=== PATIENT | female | born 1955 | race Caucasian/White ===

== ENCOUNTER 2020-12-15 18:18 | Inpatient (IN) ==
[2020-12-15] MEDS ORDERED: *HR* Promethazine 25 MG/ML VIAL IM PRN (22:56)
[2020-12-15] MEDS ORDERED: Ondansetron 4 MG/2 ML VIAL IVP PRN (22:56)
[2020-12-15] MEDS ORDERED: Naloxone 0.4 MG/ML INJ IVP PRN (22:56)
[2020-12-15] MEDS: 0.9 % Sodium Chloride 1,000 ML IVC SCH (23:29)
[2020-12-16] MEDS: Ketorolac 30 MG/ML VIAL IVP PRN (01:18)
[2020-12-16 05:34] LABS: Basophils % 0.3 %; Eosinophils % 0.1 %; Hematocrit 39.4 % (35.3-44.9); Hemoglobin 13.2 g/dL (11.5-15.4); Immature Granulocytes % 0.6 % (0-4); Lymphocytes # 1.8 K/mcL (0.6-4.6); Lymphocytes % 12.5 %; Mean Corpuscular HGB Conc 33.5 g/dL (31.6-35.5); Mean Corpuscular Volume 92.5 fL (83.0-100.0); Mean Platelet Volume 10.7 fL (9.4-12.4); Monocytes # 1.6 K/mcL (0.0-1.3); Monocytes % 11.1 %; Neutrophils # 10.8 K/mcL (1.6-8.9); Platelet Count 266 K/mcL (140-400); Red Blood Count 4.26 M/mcL (3.82-4.97); Red Cell Distribution Width 12.9 % (11.5-14.5); Segmented Neutrophils % 75.4 %; White Blood Count 14.3 K/mcL (4.3-11.1)
[2020-12-16 05:43] LABS: Prothrombin Time 11.7 Seconds (9.4-12.1)
[2020-12-16 05:46] LABS: Activated Partial Thrombo Time 27.5 Seconds (26.0-36.0)
[2020-12-16 05:55] LABS: BUN/Creatinine Ratio 16 (6-26); Blood Urea Nitrogen 11 mg/dL (8-23); Calcium 9.1 mg/dL (8.6-10.3); Carbon Dioxide 22 mEq/L (23-29); Chloride 104 mEq/L (98-107); Glucose 121 mg/dL (70-105); Osmolality,Calculated 283 (280-300); Potassium 3.4 mEq/L (3.5-5.1); Sodium 136 mEq/L (136-145); eGFR For African Americans > 60 (> 60); eGFR For Non-African Americans > 60 (> 60)
[2020-12-16] MEDS ORDERED: lisinopriL 5 MG TABLET PO SCH (09:00)
[2020-12-16] MEDS ORDERED: *HR* FentaNYL (PF) 100 MCG/2 ML VIAL IVP PRN ×2 (09:05→10:39)
[2020-12-16] MEDS ORDERED: *HR* OxyCODONE Immed Rel 5 MG TABLET PO PRN (09:05)
[2020-12-16] MEDS ORDERED: Ondansetron 4 MG/2 ML VIAL IVP PRN ×2 (09:05→10:39)
[2020-12-16] MEDS ORDERED: Ketorolac 15 MG/ML VIAL IVP PRN (09:05)
[2020-12-16] MEDS ORDERED: Ringers Solution, Lactated 1,000 ML IVC SCH (09:15)
[2020-12-16] MEDS ORDERED: *HR* Propofol 200 MG/20 ML VIAL IVP ONE (09:40)
[2020-12-16] MEDS ORDERED: *HR* Rocuronium Bromide 50 MG/5 ML VIAL ONE (09:40)
[2020-12-16] MEDS ORDERED: Lidocaine -MPF 2% 2 ML VIAL ONE (09:40)
[2020-12-16] MEDS ORDERED: *HR* Midazolam HCl 2 MG/2 ML VIAL ONE (09:40)
[2020-12-16] MEDS ORDERED: Acetaminophen IV 1,000 MG/100 ML BAG IVPB ONE (10:22)
[2020-12-16] MEDS ORDERED: Naloxone 0.4 MG/ML INJ IVP PRN (10:39)
[2020-12-16] MEDS ORDERED: Albuterol 2.5 MG/3 ML NEBULIZER IH PRN (10:39)
[2020-12-16] MEDS ORDERED: Nitroglycerin 0.4 MG TAB.SUBL SL PRN (10:39)
[2020-12-16] MEDS ORDERED: *HR* HYDROmorphone (PF) 1 MG/ML SYRINGE IVP PRN (10:39)
[2020-12-16] MEDS ORDERED: *HR* Etomidate 40 MG/20 ML VIAL IVP ONE (10:52)
[2020-12-16] MEDS ORDERED: Aspirin Enteric Coated 325 MG Tablet PO SCH (11:00)
[2020-12-16] MEDS ORDERED: Nitroglycerin 0.4 MG TAB.SUBL SL ONE (11:02)
[2020-12-16] MEDS ORDERED: Aspirin 81 MG TAB.CHEW PO ONE (11:06)
[2020-12-16] MEDS ORDERED: CeFAZolin Syr 2,000MG/20 ML 2,000 MG/20 ML SYRINGE IVPB ONE (11:15)
[2020-12-16] MEDS ORDERED: *HR* Heparin 5,000 UNIT/ML VIAL IVP ONE (11:49)
[2020-12-16] MEDS ORDERED: *HR* Heparin 5,000 UNIT/ML VIAL IVP PRN ×2 (11:49)
[2020-12-16] MEDS ORDERED: Perflutren Lipid Microsphere 1.3 ML in 0.9 % Sodium Chloride 8.7 ML IVP PRN (11:49)
[2020-12-16] MEDS ORDERED: Heparin 25,000UNIT/250ML 1/2NS 25,000 UNIT/250 ML IV.SOLN IVC SCH (12:00)
[2020-12-16] MEDS ORDERED: Potassium Chloride Elixir 20 MEQ/15 ML UDC PO ONE (12:56)
[2020-12-16] MEDS: ARIPiprazole 5 MG TABLET PO SCH ×2 (14:49→20:17)
[2020-12-16] MEDS: carvediloL 6.25 MG TABLET PO SCH ×2 (14:50→20:27)
[2020-12-16] MEDS: Perphenazine 2 MG TABLET PO SCH ×2 (14:50→20:19)
[2020-12-16] MEDS: Piperacillin/Tazobactam 3.375 GM in 0.9 % Sodium Chloride Mini Bag 100 ML IVPB SCH (17:17)
[2020-12-16] MEDS: Gabapentin 300 MG CAPSULE PO SCH ×2 (17:17→20:19)
[2020-12-17] MEDS: Piperacillin/Tazobactam 3.375 GM in 0.9 % Sodium Chloride Mini Bag 100 ML IVPB SCH ×3 (00:09→16:18)
[2020-12-17 03:18] LABS: Basophils % 0.3 %; Eosinophils # 0.1 K/mcL (0.0-0.6); Eosinophils % 0.8 %; Hematocrit 38.9 % (35.3-44.9); Hemoglobin 13.3 g/dL (11.5-15.4); Immature Granulocytes % 0.4 % (0-4); Lymphocytes # 1.8 K/mcL (0.6-4.6); Mean Corpuscular HGB Conc 34.2 g/dL (31.6-35.5); Mean Corpuscular Hemoglobin 31.5 pg (28.0-33.3); Mean Corpuscular Volume 92.2 fL (83.0-100.0); Mean Platelet Volume 10.9 fL (9.4-12.4); Monocytes # 1.5 K/mcL (0.0-1.3); Monocytes % 12.3 %; Neutrophils # 8.6 K/mcL (1.6-8.9); Platelet Count 226 K/mcL (140-400); Red Blood Count 4.22 M/mcL (3.82-4.97); Red Cell Distribution Width 12.7 % (11.5-14.5); Segmented Neutrophils % 71.2 %; White Blood Count 12.1 K/mcL (4.3-11.1)
[2020-12-17] MEDS: Ketorolac 30 MG/ML VIAL IVP PRN (03:18)
[2020-12-17 03:25] LABS: INR 1.2; Prothrombin Time 13.5 Seconds (9.4-12.1)
[2020-12-17 03:37] LABS: Alanine Aminotransferase 16 Units/L (7-52); Albumin/Globulin Ratio 1.4 (1.1-2.2); Alkaline Phosphatase 65 Units/L (34-104); Aspartate Amino Transferase 18 Units/L (13-39); BUN/Creatinine Ratio 22 (6-26); Bilirubin,Total 0.9 mg/dL (0.3-1.0); Blood Urea Nitrogen 14 mg/dL (8-23); Calcium 8.9 mg/dL (8.6-10.3); Carbon Dioxide 20 mEq/L (23-29); Chloride 100 mEq/L (98-107); Globulin 2.8 g/dL (2.4-3.5); Glucose 110 mg/dL (70-105); Magnesium 1.7 mg/dL (1.6-2.6); Osmolality,Calculated 277 (280-300); Potassium 3.3 mEq/L (3.5-5.1); Sodium 133 mEq/L (136-145); Total Protein 6.8 g/dL (6.4-8.9); eGFR For African Americans > 60 (> 60); eGFR For Non-African Americans > 60 (> 60)
[2020-12-17] MEDS: ARIPiprazole 5 MG TABLET PO SCH ×3 (08:22→20:10)
[2020-12-17] MEDS: Gabapentin 300 MG CAPSULE PO SCH ×4 (08:23→20:09)
[2020-12-17] MEDS: carvediloL 6.25 MG TABLET PO SCH ×3 (08:23→19:24)
[2020-12-17] MEDS: Perphenazine 2 MG TABLET PO SCH ×3 (08:23→20:09)
[2020-12-17] MEDS ORDERED: Aspirin Enteric Coated 325 MG Tablet PO SCH (09:00)
[2020-12-17] MEDS ORDERED: lisinopriL 20 MG TABLET PO SCH (09:00)
[2020-12-17] MEDS ORDERED: Aspirin 81 MG TAB.CHEW PO SCH (09:00)
[2020-12-17] MEDS ORDERED: *HR* Propofol 200 MG/20 ML VIAL IVP ONE (10:32)
[2020-12-17] MEDS ORDERED: Ondansetron 4 MG/2 ML VIAL ONE (10:32)
[2020-12-17] MEDS ORDERED: Lidocaine -MPF 2% 2 ML VIAL ONE (10:32)
[2020-12-17] MEDS ORDERED: Lidocaine -MPF 4% 5 ML AMPUL ONE (10:32)
[2020-12-17] MEDS ORDERED: *HR* FentaNYL (PF) 100 MCG/2 ML VIAL ONE (10:32)
[2020-12-17] MEDS ORDERED: *HR* Rocuronium Bromide 50 MG/5 ML VIAL ONE (10:32)
[2020-12-17] MEDS ORDERED: *HR* HYDROmorphone PF 0.5 MG/0.5 ML SYRINGE IVP PRN (11:18)
[2020-12-17] MEDS ORDERED: Ondansetron 4 MG/2 ML VIAL IVP PRN ×2 (11:18→13:49)
[2020-12-17] MEDS ORDERED: Acetaminophen IV 1,000 MG/100 ML BAG IVPB ONE (11:22)
[2020-12-17] MEDS ORDERED: Famotidine 20 MG/2 ML VIAL ONE (11:22)
[2020-12-17] MEDS ORDERED: Isovue-300 50ML VIAL ONE (11:38)
[2020-12-17] MEDS ORDERED: *HR* Magnesium Sulfate 1 GM/2 ML VIAL ONE (13:06)
[2020-12-17] MEDS ORDERED: Sugammadex Sodium 200 MG/2 ML VIAL IV ONE (13:08)
[2020-12-17] MEDS ORDERED: Ketorolac 30 MG/ML VIAL IVP PRN (13:49)
[2020-12-17] MEDS ORDERED: Fluticasone Propionate Nasal 50 MCG/SPRAY BOTTLE NS PRN (13:49)
[2020-12-17] MEDS ORDERED: *HR* Promethazine 25 MG/ML VIAL IM PRN (13:49)
[2020-12-17] MEDS ORDERED: Naloxone 0.4 MG/ML INJ IVP PRN (13:49)
[2020-12-17] MEDS: BuPROPion SR (12 HR) 100 MG TABLET PO SCH (14:33)
[2020-12-17] MEDS: 0.9 % Sodium Chloride 1,000 ML IVC SCH (19:24)
[2020-12-18] MEDS: Piperacillin/Tazobactam 3.375 GM in 0.9 % Sodium Chloride Mini Bag 100 ML IVPB SCH ×3 (01:42→15:35)
[2020-12-18] MEDS: BuPROPion SR (12 HR) 100 MG TABLET PO SCH (02:27)
[2020-12-18 03:24] LABS: Basophils % 0.2 %; Hematocrit 35.1 % (35.3-44.9); Hemoglobin 11.9 g/dL (11.5-15.4); Immature Granulocytes % 0.4 % (0-4); Lymphocytes # 0.9 K/mcL (0.6-4.6); Lymphocytes % 7.5 %; Mean Corpuscular HGB Conc 33.9 g/dL (31.6-35.5); Mean Corpuscular Hemoglobin 31.6 pg (28.0-33.3); Mean Corpuscular Volume 93.4 fL (83.0-100.0); Mean Platelet Volume 11.2 fL (9.4-12.4); Monocytes # 1.2 K/mcL (0.0-1.3); Monocytes % 9.9 %; Platelet Count 215 K/mcL (140-400); Red Blood Count 3.76 M/mcL (3.82-4.97); Red Cell Distribution Width 12.7 % (11.5-14.5); White Blood Count 12.2 K/mcL (4.3-11.1)
[2020-12-18 03:37] LABS: Alanine Aminotransferase 155 Units/L (7-52); Albumin 3.8 g/dL (3.5-5.7); Albumin/Globulin Ratio 1.4 (1.1-2.2); Alkaline Phosphatase 113 Units/L (34-104); Aspartate Amino Transferase 162 Units/L (13-39); BUN/Creatinine Ratio 26 (6-26); Bilirubin,Total 0.6 mg/dL (0.3-1.0); Blood Urea Nitrogen 17 mg/dL (8-23); Calcium 8.4 mg/dL (8.6-10.3); Carbon Dioxide 19 mEq/L (23-29); Chloride 100 mEq/L (98-107); Globulin 2.8 g/dL (2.4-3.5); Glucose 104 mg/dL (70-105); Osmolality,Calculated 276 (280-300); Potassium 4.5 mEq/L (3.5-5.1); Sodium 132 mEq/L (136-145); Total Protein 6.6 g/dL (6.4-8.9); eGFR For African Americans > 60 (> 60); eGFR For Non-African Americans > 60 (> 60)
[2020-12-18] MEDS: ARIPiprazole 5 MG TABLET PO SCH ×2 (07:31→15:33)
[2020-12-18] MEDS: Perphenazine 2 MG TABLET PO SCH ×2 (07:32→15:33)
[2020-12-18] MEDS: carvediloL 6.25 MG TABLET PO SCH ×2 (07:32→17:21)
[2020-12-18] MEDS: Gabapentin 300 MG CAPSULE PO SCH ×3 (07:33→17:21)
[2020-12-18] MEDS ORDERED: lisinopriL 20 MG TABLET PO SCH (09:00)
[2020-12-18] MEDS ORDERED: polyethylene glycoL 3350 17 GM POWD.PACK PO SCH (09:00)
[2020-12-18] MEDS ORDERED: Aspirin 81 MG TAB.CHEW PO SCH (09:00)
[2020-12-18 10:03] LABS: Albumin 3.6 g/dL (3.5-5.7); Albumin/Globulin Ratio 1.3 (1.1-2.2); Bilirubin,Direct 0.2 mg/dL (0.0-0.2); Bilirubin,Indirect 0.5 mg/dL (0.0-1.0); Bilirubin,Total 0.7 mg/dL (0.3-1.0); Globulin 2.8 g/dL (2.4-3.5); Total Protein 6.4 g/dL (6.4-8.9)
[2020-12-18 11:01] VITALS: BP 105/62
[2020-12-18] MEDS ORDERED: BuPROPion SR (12 HR) 100 MG TABLET PO SCH (13:00)
== END 2020-12-18 19:30 | disposition home or self-care (01) | DRG 418 ==
LOC: 3ANU → SUATTDRO 21:21
PROVIDERS: ADMIT Internal Medicine; ATTEND Internal Medicine